=== PATIENT | female | born 1940 | race African-American/Black ===

== ENCOUNTER 2016-05-21 13:56 | Emergency (ER) | payer MEDICARE, OTHER ==
--- NOTE | ~2016-05-21 | CR181 ---
[facility] A Service of [facility] & [facility] RADIOLOGY TEXT RESULTS PATIENT: MARY EVANS LOCATION: [facility] : 40 UNIT #: [id number] AGE: [address]: Alvin Case MD SEX: F ORDER DR: [id number] [facility] [address] [place], [place] [address] [id number] MR#: [id number] Acc #: [id number] NAME: MARY EVANS. : 1940 SEX: F STUDY DATE/TIME: 05/21/2016 13:17 UNIT: [facility] ROOM: STUDY DESCRIPTION: CR Lumbar Spine 2 or 3 Views Attending Physician: Alvin Case M.D. Referring Physician: Ashley Self Referred Ordering Physician: Alvin Case M.D. Primary Care Physician: Geneva Figueroa M.D. MEDICAL IMAGING REPORT This report is preliminary unless electronic signature is present EXAM Lumbar spine series 05/21/2016 HISTORY Radiculopathy. Low back pain radiculopathy 1 month duration. Worse this a.m. FINDINGS AP and 2 lateral views of the lumbar spine are presented. Comparison 09/24/2009. 5 lumbar-type vertebral segments. No traumatic fracture or malalignment. Approximately 2-3 mm degenerative anterolisthesis L3 on L4. Stable compared to 1010. 4 mm degenerative anterolisthesis L4 on L5 stable compared to prior study. The vertebral body heights show degenerative loss of height in the L5 vertebral body particularly along its posterior aspect in the interval from 2009. This involves predominately degenerative changes in the inferior endplate. Other vertebral body heights normal. Moderate to marked intervertebral disc space narrowing L2-L3 L4-L5 L5-S1. On the lateral views, appearance suggests potentially significant neural foraminal narrowing L4 - L5 and particularly at L5 - S1. These findings are more pronounced than in 2009. The visualized lower thoracic spine shows relatively mild degenerative change. Visualized bony pelvis is intact. Bowel gas pattern unremarkable. If it would assist in patient management, spinal canal and neural foraminal contents could best be further evaluated with elective MRI if patient is candidate or CT examination. Dictated by... Rolando Arellano M.D. THIS IS AN ELECTRONICALLY VERIFIED REPORT Rolando Arellano M.D. at 05/22/2016 5:56 PM [facility] A Service of [facility] & [facility] RADIOLOGY TEXT RESULTS PATIENT: MARY EVANS [id number] 40 UNIT #: [id number] AGE: [address]: Alvin Case MD SEX: F ORDER DR: MILIND/christoph TD: 05/21/2016 14:20 JOB #: [id number] MEDICAL IMAGING REPORT Page 1 of 1 COPY
[2016-05-21 13:15] LABS: URINE SOURCE CLEAN CATCH
[2016-05-21 13:29] LABS: URINE APPEARANCE CLEAR; URINE BILIRUBIN NEG (NEG); URINE BLOOD NEG (NEG); URINE COLOR YELLOW; URINE GLUCOSE NEG (NEG); URINE KETONE NEG (NEG); URINE LEUKOCYTE ESTERASE NEG (NEG); URINE NITRATE NEG (NEG); URINE PROTEIN NEG (NEG); URINE SPECIFIC GRAVITY 1.013 (1.003-1.035); URINE UROBILINOGEN 0.2 MG/DL (NEG)
[2016-05-21 13:40] LABS: CULTURE INDICATED? NO
[~2016-05-21 13:56] MED LIST: ACETAMINOPHEN PO; ACETAMINOPHEN650 M1 PO; ASPIRIN PO; ASPIRIN81 M2 PO; BACTRIM DS TABL1 TA1 PO; COLACE PO; CRESTOR PO; EXFORGE 10-3201 TAB PO; EXFORGE PO; FLEXERIL10 MG PO; KCL PO; KEFLEX500 MG PO; LASIX PO; LEVAQUIN PO; LORTAB 5/500 TA1 TA1 PO; LOTREL PO; METOPROLOL TAR25 MG PO; MILK OF MAGNESIA PO; NAPROXEN PO; NORCO 7.5-3251 EACH PO; PLAVIX PO; PRAVACHOL20 MG PO; PREDNISONE PO; PROTONIX PO; SIMVASTATIN20 MG PO; TOPROL XL PO; ULTRAM PO; VICODIN PO; ZITHROMAX1 G/PKT PO
[2016-05-21 14:53] LABS: BASOPHIL% 0.4 % (0-2.5); EOSINOPHIL# 0.3 X10e3 (0-0.7); HEMATOCRIT 44.2 % (35.0-45.0); HEMOGLOBIN 14.3 gm/dL (12.0-16.0); LYMPHOCYTE# 2.5 X10e3 (1.0-3.5); LYMPHOCYTE% 40.2 % (17.0-45.0); MEAN CELL VOLUME 90.5 FL (83-96); MEAN CORPUSCULAR HEMOGLOBIN 29.2 PG (28-34); MEAN CORPUSCULAR HGB CONC 32.3 g/dL (30-36); MEAN PLATELET VOLUME 7.8 FL (6.5-11.5); MONOCYTE# 0.5 X10e3 (0-1.0); MONOCYTE% 8.7 % (3.0-12.0); NEUTROPHIL# 2.9 X10e3 (1.5-7.1); NEUTROPHIL% 45.7 % (40-75); PLATELET COUNT 263 X10e3 (140-420); RED BLOOD COUNT 4.89 X10e (3.90-5.30); RED CELL DISTRIBUTION WIDTH 14.2 % (11.0-15.5); WHITE BLOOD COUNT 6.3 X10e3 (4.0-10.5)
[2016-05-21 15:05] LABS: DIFF IND NO
[2016-05-21 15:10] LABS: CALCIUM SERUM 9.7 mg/dL (8.4-10.2); CREATININE SERUM 0.8 mg/dL (0.6-1.4); GLOM FILT RATE Estimated 83.7 mL/min (>60); POTASSIUM 3.8 mmol/L (3.5-5.1)
== END 2016-05-21 15:20 | disposition home or self-care (01) ==
LOC: CED 13:56
PROVIDERS: Emergency Medicine
DX: S39.012A Strain of muscle, fascia and tendon of lower back, initial encounter (principal); M54.41 Lumbago with sciatica, right side; I25.10 Atherosclerotic heart disease of native coronary artery without angina pectoris; Z88.0 Allergy status to penicillin; X50.9XXA Other and unspecified overexertion or strenuous movements or postures, initial encounter
CPT/HCPCS: 36415; 72100; 80048; 81003; 85025; 96374; 99284; J1885

== ENCOUNTER 2016-05-25 11:17 | Observation (INO) | payer MEDICARE, OTHER ==
--- NOTE | ~2016-05-25 | EKG ---
PATIENT: MARY EVANS UNIT #: [id number] Ventricular Rate: 77 BPM Atrial Rate: 77 BPM P-R Interval: 150 ms QRS Duration: 94 ms Q-T Interval: 394 ms QTC Calculation(Bezet): 445 ms P [place]: 62 degrees Calculated R [place]: -29 degrees Diagnosis Line: Normal sinus rhythm Diagnosis Line: Possible Left atrial enlargement Diagnosis Line: Incomplete right bundle branch block Diagnosis Line: Left ventricular hypertrophy Diagnosis Line: Abnormal ECG Diagnosis Line: When compared with ECG of 31-AUG-2014 05:51, Diagnosis Line: Criteria for Septal infarct are no longer Present Diagnosis Line: Confirmed by TE MOSLEY MD ([id number]) on 05/27/2016 Diagnosis Line: 10:56:43 PM INTERPRETING MD: MELANY OLMOS
--- NOTE | ~2016-05-25 | EKG ---
PATIENT: MARY EVANS UNIT #: [id number] Ventricular Rate: 58 BPM Atrial Rate: 58 BPM P-R Interval: 144 ms QRS Duration: 96 ms Q-T Interval: 464 ms QTC Calculation(Bezet): 455 ms P [place]: 70 degrees Calculated R [place]: -20 degrees Calculated T [place]: -8 degrees Diagnosis Line: Sinus bradycardia with sinus arrhythmia Diagnosis Line: Nonspecific T wave abnormality Diagnosis Line: Abnormal ECG Diagnosis Line: When compared with ECG of 25-MAY-2016 09:17, Diagnosis Line: (unconfirmed) Diagnosis Line: Incomplete right bundle branch block is no longer Diagnosis Line: Present Diagnosis Line: Confirmed by TE MOSLEY MD ([id number]) on 05/27/2016 Diagnosis Line: 11:09:15 PM INTERPRETING MD: MELANY OLMOS
--- NOTE | ~2016-05-25 | CO ---
Unit #: [id number] #: [id number] Patient: JUNE EVANS [id number] [address] [place], [place] [address] [id number] I MR#: [id number] NAME: JUNE EVANS. ROOM: 577 Age: 75 Sex: F Admission Date: 05/25/2016 : 1940 Attending Physician: Michael Montesinos M.D. Primary Care Physician: Geneva Figueroa M.D. Consultation Date: 05/25/2016 CONSULTATION REPORT HISTORY OF PRESENT ILLNESS June Evans is a 75-year-old female, whom I have been asked to see by Dr. Judd because of dyspnea. The patient has a history of chronic obstructive airway disease and is followed in our office by Dr. Shell. For the last 2 weeks prior to admission, the patient complained of worsening shortness of breath, dyspnea with intermittent wheezing. Beyond those symptoms, she also complained of squeezing pressure tight midsternal chest pain, sometimes radiating to the back. The pain worsens when she bends over to put on shoes or when she turns on her left side. The pain is not exertional. She presented with the above complaints and has subsequently been admitted for workup. Prior to admission, she denied productive cough, purulent sputum, hemoptysis, fever, or chills. She is a reformed smoker. Accumulated about 40-pack years before cessation. At home, she uses a nebulizer on an as-needed basis. She has been given samples of inhalers in the office by Dr. Shell, but does not use them with regularity. PAST MEDICAL HISTORY Remarkable for coronary artery disease with stents to right coronary artery and left anterior descending artery in 2004. Other medical problems include diabetes mellitus, dyslipidemia, degenerative arthritis with bilateral knee replacements, and hysterectomy. FAMILY HISTORY Reviewed, noncontributory. SOCIAL HISTORY Reformed smoker. No history of alcohol or drug abuse. ALLERGIES Penicillin. HOME MEDICATIONS The patient could not identify them other than use of nebulizer. She had no idea of the names of previously tried inhalers. Review records shows that she takes aspirin, pravastatin, hydrocodone, gabapentin, naproxen, Protonix, labetalol, and metoprolol. REVIEW OF SYSTEMS Unit #: [id number] #: [id number] Patient: JUNE EVANS CONSTITUTIONAL: She denied fever, chills, or recent change in weight. HEENT: Mild nasal and sinus congestion. No epistaxis. NECK: No pain in cervical spine. No thyroid enlargement. PULMONARY: As above. Intermittent wheeze cough and increased dyspnea. CARDIOVASCULAR: Midsternal chest pain as described above. No ankle edema. No orthopnea or paroxysmal nocturnal dyspnea. GI: Denied nausea, vomiting, or diarrhea. : Denied dysuria or hematuria. SKIN: No rash or nodules. LYMPH: No adenopathy in neck, cervical, or axillary areas. NEUROLOGIC: No loss of consciousness, seizures, or syncope. ENDOCRINE: Denied cold intolerance, polyuria, polydipsia. MUSCULOSKELETAL: Complained of chronic low back pain. No joint swelling or erythema. PHYSICAL EXAMINATION GENERAL: She appeared an obese female who is resting comfortably, in no acute distress. She was seen down in the emergency department. VITAL SIGNS: Temp was 97.8, pulse was 78, blood pressure was 145/80, respirations 12 to 14. HEENT: Head; normocephalic without evidence of trauma. Eyes; pupils are equal, round, reactive to light. She was not cooperative for accommodation testing. Sclerae anicteric. Conjunctivae normal. Ear, nose, throat; nostrils open and patent. Tympanic membranes appeared normal. Oral cavity was remarkable for low-set soft palate. Mallampati class III. No thrush present. NECK: Supple without adenopathy or jugular venous distention. LUNGS: Clear to auscultation and percussion. CARDIAC: PMI not palpable. HEART: Sounds were distant. No murmurs or gallops. ABDOMEN: Obese, soft, nontender. No hepatosplenomegaly or masses. Bowel sounds are normal. GENITALIA: Normal female. RECTAL: Deferred. EXTREMITIES: Without clubbing, cyanosis, or edema. SKIN: Warm and dry with normal capillary refill. LYMPH: No adenopathy in neck, cervical, or axillary areas. NEUROLOGIC: No loss of consciousness. Cranial nerves II through XII intact. Sensory normal to pinprick and touch. Deep tendon reflexes were absent in the ankles, 1+ at the knees, 1+ upper extremities. MUSCULOSKELETAL: Equal muscular development bilaterally. No joint swelling or erythema. Strength not tested. DIAGNOSTIC STUDIES IMAGING STUDIES: Admitting chest x-ray showed no active disease. On room air, her oxygen saturation was 95%. LABORATORY RESULTS: Her electrolytes were normal. BUN 14, creatinine 0.8. Troponin was normal x1. White blood cell count was 4200, hemoglobin was 13.2 g, hematocrit 40.6%. IMPRESSION 1. Increased dyspnea. 2. Chronic obstructive pulmonary disease - probably mild exacerbation, no evidence of pneumonia on chest x-ray. 3. Chest pain. 4. Diabetes mellitus type 2. Unit #: [id number] #: [id number] Patient: JUNE EVANS 5. Dyslipidemia. RECOMMENDATIONS She will be started on Spiriva and nebulized albuterol q.i.d. Further recommendations to follow. Dr. Shell will see her in the morning. Dictated by... Shazia Bowen/leti TD: 05/26/2016 16:21 JOB #: [id number] CONSULTATION REPORT Page 1 of 1 X Kenneth Head MD X CONSULTATION REPORT
--- NOTE | ~2016-05-25 | CR72 ---
[facility] A Service of [facility] & [facility] RADIOLOGY TEXT RESULTS PATIENT: MARY EVANS LOCATION: [facility] 57- : 40 UNIT #: [id number] AGE: [address]: Michael Montesinos MD SEX: F ORDER DR: [id number] [facility] [address] [place], [place] [address] [id number] I MR#: [id number] Acc #: [id number] NAME: MARY EVANS. : 1940 SEX: F STUDY DATE/TIME: 05/25/2016 11:43 UNIT: [facility] ROOM: [address]6750 STUDY DESCRIPTION: CR Chest Single View Portable Attending Physician: Michael Montesinos M.D. Ordering Physician: Mingo Rodriguez M.D. Primary Care Physician: Geneva Figueroa M.D. MEDICAL IMAGING REPORT This report is preliminary unless electronic signature is present EXAM Single view of the chest. HISTORY Chest pain and shortness of air for 2 weeks. FINDINGS Single portable AP view of the chest compared to 05/09/2015. Heart and mediastinal contours are unchanged. No new pulmonary opacities. No pleural effusion. IMPRESSION No acute cardiopulmonary findings or significant change. Dictated by... Zoltan Nolan M.D. THIS IS AN ELECTRONICALLY VERIFIED REPORT Zoltan Nolan M.D. at 05/26/2016 2:11 PM MARIA M/derik TD: 05/25/2016 18:45 JOB #: [id number] MEDICAL IMAGING REPORT Page 1 of 1 COPY
--- NOTE | ~2016-05-25 | HP ---
Unit #: [id number] #: [id number] Patient: MARY EVANS [id number] [address] [place], [place] [address] [id number] MR#: [id number] NAME: MARY EVANS. ROOM: 95414 Age: 75 Sex: F Admission Date: 05/25/2016 : 1940 Attending Physician: Michael Montesinos M.D. Primary Care Physician: Geneva Figueroa M.D. HISTORY AND PHYSICAL REASON FOR ADMISSION Chest pain and shortness of breath. HISTORY OF PRESENT ILLNESS The patient is a 75-year-old female who is an office patient of Dr. Montesinos. She says she sees him once a year. She has a history of coronary artery disease dating back to 2004 when she had a stent to the LAD and RCA placed at [facility]. The patient has risk factors for coronary artery disease, such as diabetes and hyperlipidemia, as well as being an ex-smoker. For the last 2 weeks the patient has developed a sharp, squeezing pain intermittent in the mid sternal chest, sometimes radiating to the back. It is worse when she bends over to put her shoes on and when she turns on her left side. It is nonexertional. However, with this pain she has experienced some shortness of breath. She has also noted some swelling to both of her feet. 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 She has a nebulizer at home, which has not been helping her shortness of breath. PAST MEDICAL HISTORY 1. Coronary artery disease with RCA and LAD stents in 2004. 2. Diabetes. 3. Hyperlipidemia. 4. Knee replacement. 5. Hysterectomy. SOCIAL HISTORY The patient is an ex-smoker. No alcohol or drug abuse. FAMILY HISTORY Noncontributory. ALLERGIES Penicillin. HOME MEDICINES No know dosages at this time, but aspirin, pravastatin, hydrocodone, gabapentin, naproxen, Protonix, labetalol and Metoprolol. PHYSICAL EXAMINATION GENERAL: The patient is awake and alert, in no apparent distress. SKIN: Color is pink. Skin is warm and dry. VITAL SIGNS: Afebrile. Heart rate 69, blood pressure 146/79. NECK: Normal carotid upstrokes. No auscultated bruit. Negative JVD lying supine. Negative hepatojugular reflex. Unit #: [id number] #: [id number] Patient: MARY EVANS CHEST: Respirations have bilateral tight wheezes. HEART: S1, S2. Regular rate and rhythm. No murmurs, rubs or gallops. ABDOMEN: Abdomen is soft, nontender, nondistended. Positive bowel sounds x4 quadrants. No ascites noted. EXTREMITIES: Bilateral lower extremities have 1+ pedal edema. Moves all extremities without difficulty. NEUROLOGIC: No focal motor or sensory deficits. DIAGNOSTICS CARDIOVASCULAR: EKG shows sinus rhythm with nonspecific ST changes. LABS: Sodium 141, potassium 4, chloride 105, CO2 28, BUN 14, creatinine 0.8, glucose 102. Troponin negative x1. White blood cell count 4.2, hemoglobin 13.2, hematocrit 40.6, platelet count 257. IMPRESSION 1. Atypical chest pain. 2. History of coronary artery disease with stents to LAD and RCA in 2004. 3. Probable acute COPD exacerbation. 4. Diabetes. 5. Hyperlipidemia. PLAN The patient will be admitted for observation. Will rule out for DE. Will check a two-D echo and Cardiolite stress test in the morning. Will start on low dose aspirin, restart home medications. Will start on DVT prophylaxis with Lovenox. Will ask Dr. Shell, her primary pulmonary doctor, to see her, as well as start her on some albuterol Atrovent Mini-Neb. Dictated by KRISHNA Saldivar/hilda TD: 05/25/2016 13:45 JOB #: [id number] HISTORY AND PHYSICAL Page 1 of 1 X X HISTORY AND PHYSICAL
--- NOTE | ~2016-05-25 | ST ---
Unit #: [id number] #: [id number] Patient: MARY EVANS [id number] [address] [place], [place] [address] [id number] I MR#: [id number] NAME: MARY EVANS. : 1940 SEX: F STUDY DATE/TIME: 05/26/2016 UNIT: [facility] ROOM: 577 STUDY DESCRIPTION: Lexiscan stress test Attending Physician: Michael Montesinos M.D. Primary Care Physician: Geneva Figueroa M.D. CARDIOLOGY REPORT PROCEDURES PERFORMED EKG portion of Lexiscan Cardiolite. REASON FOR EXAM Chest pain. PROCEDURE Baseline EKG shows normal sinus rhythm, 83 beats per minute. Per protocol, 0.4 mg of Lexiscan was injected, followed by Cardiolite. During the test the patient complained of shortness of breath. Denied any complaints of chest pain,. There were no ST segment changes suggestive of ischemia during the test. There was an isolate PVC in the recovery period. The test was stopped secondary to protocol completion. CONCLUSIONS 1. Negative EKG portion of Lexiscan Cardiolite. 2. No ST-T segment changes suggestive of ischemia. 3. Complaint of shortness of breath but no chest pain during the infusion. This resolved in the recovery period. 4. No ectopy noted during the infusion but did have an isolated PVC in the recovery period. 5. Please correlate with nuclear imaging. Dictated by... Maryjo WaltersRPanda for Michael Montesinos M.D. LMW/db TD: 05/26/2016 12:40 JOB #: [id number] Unit #: [id number] #: [id number] Patient: MARY EVANS CARDIOLOGY REPORT Page 1 of 1 X India Thomas APRN CARDIOLOGY REPORT
--- NOTE | ~2016-05-25 | TH ---
Unit #: [id number] #: [id number] Patient: MARY EVANS [id number] [address] [address] [id number] I MR#: [id number] NAME: MARY EVANS : 1940 SEX: F STUDY DATE/TIME: 05/26/2016 UNIT: [facility] ROOM: 577 STUDY DESCRIPTION: Imaging Study Attending Physician: Michael Montesinos M.D. Primary Care Physician: Geneva Figueroa M.D. CARDIOLOGY REPORT EXAM Nuclear stress test INDICATION Chest pain. SUMMARY Patient underwent nuclear stress test, received a resting dose of 11.36 mCi and a stress dose of 31.8 mCi. On gated imaging patient appears to have hyperdynamic LV function with LVEF of 72%. On perfusion imaging, comparing rest and stress imaging there appear to be no reversible perfusion defects. CONCLUSION 1. No obvious ischemia. 2. Hyperdynamic left ventricular function. 3. ECG portion to be dictated separately. Dictated by... Preethi Rothman M.D. OK/cf TD: 05/26/2016 17:06 JOB #: [id number] CARDIOLOGY REPORT Page 1 of 1 X PREETHI ROTHMAN MD CARDIOLOGY REPORT
[2016-05-25 10:25] LABS: DIFF IND NO; EOSINOPHIL# 0.3 X10e3 (0-0.7); EOSINOPHIL% 6.8 % (0.0-7.0); HEMATOCRIT 40.6 % (35.0-45.0); HEMOGLOBIN 13.2 gm/dL (12.0-16.0); LYMPHOCYTE# 1.8 X10e3 (1.0-3.5); LYMPHOCYTE% 42.5 % (17.0-45.0); MEAN CELL VOLUME 90.2 FL (83-96); MEAN CORPUSCULAR HEMOGLOBIN 29.3 PG (28-34); MEAN CORPUSCULAR HGB CONC 32.5 g/dL (30-36); MEAN PLATELET VOLUME 7.8 FL (6.5-11.5); MONOCYTE# 0.3 X10e3 (0-1.0); NEUTROPHIL# 1.8 X10e3 (1.5-7.1); NEUTROPHIL% 41.7 % (40-75); PLATELET COUNT 257 X10e3 (140-420); RED BLOOD COUNT 4.49 X10e (3.90-5.30); RED CELL DISTRIBUTION WIDTH 14.2 % (11.0-15.5); WHITE BLOOD COUNT 4.3 X10e3 (4.0-10.5)
[2016-05-25 10:54] LABS: ALBUMIN SERUM 4.1 g/dL (3.5-5.0); ALKALINE PHOSPHATASE 59 U/L (32-92); ALT (SGPT) 22 U/L (10-40); AST (SGOT) 21 U/L (10-42); BILIRUBIN, DIRECT <0.1 mg/dL (0.0-0.2); BILIRUBIN,INDIRECT 0.2 mg/dL (0.0-0.9); BILIRUBIN,TOTAL 0.3 mg/dL (0.2-2.0); BLOOD UREA NITROGEN 14 mg/dL (9-23); CALCIUM SERUM 9.5 mg/dL (8.4-10.2); CARBON DIOXIDE 28 mmol/L (22-31); CHLORIDE 105 mmol/L (100-111); CREATININE SERUM 0.8 mg/dL (0.6-1.4); GLOM FILT RATE Estimated 83.7 mL/min (>60); GLUCOSE FASTING 102 mg/dL (70-110); PROTEIN TOTAL SERUM 7.4 g/dL (6.0-8.3); SODIUM 141 mmol/L (135-145)
[2016-05-25 11:13] LABS: POC - CKMB <1.0 ng/mL (0.0-7.9); POC - TROPONIN <0.05 ng/mL (<=0.05)
[2016-05-25 12:16] LABS: POC - CKMB <1.0 ng/mL (0.0-7.9); POC - TROPONIN <0.05 ng/mL (<=0.05)
[2016-05-25] MEDS ORDERED: LOW DOSE ASPIRI81 M2 PO (13:34)
[2016-05-25] MEDS ORDERED: PRAVASTATIN SOD10 MG PO (13:34)
[2016-05-25] MEDS ORDERED: HYDROCODONE/APA1 T16 PO (13:36)
[2016-05-25] MEDS ORDERED: NEURONTIN100 MG PO (13:36)
[2016-05-25] MEDS ORDERED: NAPROSYN500 MG PO (13:37)
[2016-05-25] MEDS ORDERED: PROTONIX PO (13:38)
[2016-05-25] MEDS ORDERED: METOPROLOL SUCC25 MG PO (13:39)
[2016-05-25] MEDS ORDERED: LABETALOL HCL300 MG PO (13:39)
[2016-05-25 22:33] LABS: MB 1.8 ng/ml
[2016-05-26 03:08] LABS: BUN/CREATININE RATIO 22.85; CALCIUM SERUM 9.8 mg/dL (8.4-10.2); CREATININE SERUM 0.7 mg/dL (0.6-1.4); GLOM FILT RATE Estimated 98.2 mL/min (>60); MAGNESIUM 1.9 mg/dL (1.6-3.0); POTASSIUM 3.8 mmol/L (3.5-5.1)
[2016-05-26 03:27] LABS: MB 1.6 ng/ml
== END 2016-05-26 19:53 | disposition home or self-care (01) ==
LOC: CED 11:17 → CEDOF 12:30 → C5C 22:35
PROVIDERS: Emergency Medicine; Nurse Practitioner
DX: R07.89 Other chest pain (principal); I25.10 Atherosclerotic heart disease of native coronary artery without angina pectoris; E11.9 Type 2 diabetes mellitus without complications; E78.5 Hyperlipidemia, unspecified; J44.9 Chronic obstructive pulmonary disease, unspecified; E66.9 Obesity, unspecified; Z95.5 Presence of coronary angioplasty implant and graft; Z87.891 Personal history of nicotine dependence; Z88.0 Allergy status to penicillin; Z90.710 Acquired absence of both cervix and uterus; Z96.659 Presence of unspecified artificial knee joint
CPT/HCPCS: 36415; 71010; 78452; 80048; 80076; 82550; 82553; 83735; 84484; 85025; 93005; 93017; 93306; 94640; 94664; 94760; 96372; 99285; A9500; G0378; J1650; J2785

== ENCOUNTER → 2016-09-19 | Outpatient (CLI) | payer MEDICARE, OTHER ==
[~2016-09-19] MED LIST changes: +HYDROCODONE/APA1 T16 PO; +LABETALOL HCL300 MG PO; +LOW DOSE ASPIRI81 M2 PO; +METOPROLOL SUCC25 MG PO; +NAPROSYN500 MG PO; +NEURONTIN100 MG PO; +PRAVASTATIN SOD10 MG PO
--- NOTE | ~2016-09-19 | MY29 ---
[facility] A Service of [facility] RADIOLOGY TEXT RESULTS PATIENT: MARY EVANS LOCATION: [facility] : 40 UNIT #: [id number] AGE: [address]: CARO FIGUEROA MD SEX: F ORDER DR: [id number] [facility] [address] [place], [place] [address] [id number] MR#: [id number] Acc #: [id number] NAME: MARY EVANS : 1940 SEX: F STUDY DATE/TIME: 09/19/2016 11:38 UNIT: [facility] ROOM: STUDY DESCRIPTION: MY YVONNE SCREENING W/ CAD BILAT Attending Physician: Caro Figueroa M.D. Referring Physician: Caro Figueroa M.D. Ordering Physician: Caro Figueroa M.D. Primary Care Physician: Caro Figueroa M.D. MEDICAL IMAGING REPORT This report is preliminary unless electronic signature is present EXAM Digital screening mammogram, 09/19/2016; [facility]. HISTORY 75-year-old woman, no risk elevation. Annual screen. COMPARISON Comparison mammograms date to 12/17/2009 with most recent 09/21/2015. TECHNIQUE Digital imaging of each breast was completed utilizing screening protocol. Review includes FDA-approved CAD device. FINDINGS Breast parenchyma is fatty replaced. Subareolar duct prominence is noted in each breast slightly dominant and stable in the left breast. Small circumscribed nodule left subareolar location is stable as well. I see no interval occurring breast mass. There are no suspicious microcalcifications and no architectural deformity. IMPRESSION Benign mammogram. Annual screening recommended. Patients over the age of 40 are entered into a reminder system with target due date for the next mammogram. A result letter will also be sent to the patient. BIRADS: 2 Benign findings. Dictated by... Ismael Vallejo M.D. [facility] A Service of [facility] & [facility] RADIOLOGY TEXT RESULTS PATIENT: MARY EVANS LOCATION: [facility] : 40 UNIT #: [id number] AGE: [address]: CARO FIGUEROA MD SEX: F ORDER DR: THIS IS AN ELECTRONICALLY VERIFIED REPORT Ismael Vallejo M.D. at 09/22/2016 8:08 AM Russ TD: 09/19/2016 17:26 JOB #: [id number] MEDICAL IMAGING REPORT Page 1 of 1 COPY
== END | disposition home or self-care (01) ==
LOC: CWCC 10:46
DX: Z12.31 Encounter for screening mammogram for malignant neoplasm of breast (principal)
CPT/HCPCS: G0202

== ENCOUNTER 2016-09-28 15:04 | Emergency (ER) | payer MEDICARE, OTHER ==
[~2016-09-28] VITALS: Ht 175.3 cm; Wt 99.8 kg
== END 2016-09-28 15:35 | disposition home or self-care (01) ==
LOC: CED 15:04 → CFTX 15:04
DX: S61.217A Laceration without foreign body of left little finger without damage to nail, initial encounter (principal); W26.0XXA Contact with knife, initial encounter; Y92.009 Unspecified place in unspecified non-institutional (private) residence as the place of occurrence of the external cause
CPT/HCPCS: 12001; 99283